=== PATIENT | male | born 1985 | race Asian ===

== ENCOUNTER 2019-06-19 22:52 | Emergency (ER) | payer OTHER ==
[~2019-06-19] VITALS: Ht 160 cm; Wt 54.4 kg
[2019-06-19] MEDS ORDERED: ONDANSETRON HCL INJ 2MG/ML 2ML 2 MG/ML VIAL IV STA (23:12)
[2019-06-19] MEDS ORDERED: MORPHINE SULFATE 2 MG/ML SYR 1ML IV STA (23:12)
[2019-06-19] MEDS ORDERED: SODIUM CHLORIDE 0.9% 1000ML 1,000 ML IV SCH (23:15)
[2019-06-19] MEDS ORDERED: ONDANSETRON HCL INJ 2MG/ML 2ML 2 MG/ML VIAL ONE (23:39)
[2019-06-19] MEDS ORDERED: MORPHINE SULFATE INJ 4 MG/ML INJ 1ML ONE (23:40)
[2019-06-19] MEDS ORDERED: SODIUM CHLORIDE 0.9% 1000ML 1,000 ML ONE (23:40)
--- NOTE | 2019-06-20 01:45 | Diagnostic Imaging Report ---
EXAM: CT Abdomen and Pelvis WITH contrast INDICATION: Left lower quadrant abdominal pain COMPARISON: None. TECHNIQUE: Abdomen and pelvis were scanned utilizing a multidetector helical scanner from the lung base to the pubic symphysis after administration of IV contrast. Coronal and sagittal reformations were obtained. Routine protocol was performed. Scan was performed when during portal venous phase. IV CONTRAST: 100 mL of Isovue 370 ORAL CONTRAST: None COMPLICATIONS: None RADIATION DOSE: Total DLP: 355 mGy*cm Estimated effective dose: (DLP x 0.015 x size factor) mSv CTDIvol has been reviewed. It is below the limits set by the Radiation Protocol Committee (RPC). Dose modulation, iterative reconstruction, and/or weight based adjustment of the mA/kV was utilized to reduce the radiation dose to as low as reasonably achievable. FINDINGS: LINES and TUBES: None. LOWER THORAX: Unremarkable HEPATOBILIARY: There is focal fatty infiltration adjacent to the falciform ligament. No focal hepatic lesions. No biliary ductal dilation. GALLBLADDER: No radio-opaque stones or sludge. No wall thickening. SPLEEN: No splenomegaly. PANCREAS: No focal masses or ductal dilatation. ADRENALS: No adrenal nodules KIDNEYS/URETERS: Kidneys enhance symmetrically. No hydronephrosis. A 3.1 cm simple cyst in the left kidney. No solid mass lesions. Both kidneys have a single punctate nonobstructive calculus in a minor calyx. GI TRACT: Fluid distention of a few loops of small bowel in the left upper abdomen, without pathologic dilation. Slight mucosal hyperenhancement of the distal descending and sigmoid colon, and rectum. No abnormal distention, wall thickening, or evidence of bowel obstruction. Appendix is normal. PELVIC ORGANS/BLADDER: Pelvic phleboliths. Otherwise unremarkable. LYMPH NODES: Mildly prominent prominent mesenteric lymph nodes. VESSELS: Unremarkable. PERITONEUM / RETROPERITONEUM: No free air or fluid. BONES: A 1.2 cm pelvic bone island adjacent to the right acetabulum. SOFT TISSUES: Unremarkable. IMPRESSION: 1. Findings suggestive of enterocolitis. 2. Both kidneys have a single punctate nonobstructive calculus in a minor calyx. Signed by: Sen Rogers DO on 06/20/2019 1:41 AM
== END 2019-06-20 02:22 | disposition home or self-care (01) ==
LOC: FSED 22:52
DX: R10.32 Left lower quadrant pain (principal); M54.5 Low back pain; R11.0 Nausea
CPT/HCPCS: 74177; 80053; 80076; 81003; 85025; 99283; J2270; J2405; J7030